=== PATIENT | male | born 1995 | race Hispanic/Latino ===

== ENCOUNTER 2021-08-14 01:19 | Emergency (ER) | payer MEDICAID, OTHER ==
[~2021-08-14] VITALS: Ht 170.2 cm; Wt 77.6 kg
[2021-08-14 02:57] VITALS: BP 122/91
== END 2021-08-14 03:09 | disposition home or self-care (01) ==
LOC: EDH 01:19
DX: R06.00 Dyspnea, unspecified (principal); T48.3X5A Adverse effect of antitussives, initial encounter; F41.9 Anxiety disorder, unspecified; Y92.89 Other specified places as the place of occurrence of the external cause
CPT/HCPCS: 71045; 93005

== ENCOUNTER 2023-06-16 18:05 | Emergency (ER) | payer BC, OTHER ==
[~2023-06-16] VITALS: Ht 172.7 cm; Wt 88.5 kg
[2023-06-16] MEDS ORDERED: KETOROLAC 60 MG VIAL (30MG/ML) IM ONE (19:00)
[2023-06-16 21:29] VITALS: BP 139/85; PULSE 76; RESP 18; O2SAT 99
== END 2023-06-16 21:29 | disposition home or self-care (01) ==
LOC: EDH 18:05
DX: S93.401A Sprain of unspecified ligament of right ankle, initial encounter (principal); X58.XXXA Exposure to other specified factors, initial encounter; Y93.89 Activity, other specified; Y92.89 Other specified places as the place of occurrence of the external cause; Y99.8 Other external cause status
CPT/HCPCS: 99283; 73610; 73630; J1885